=== PATIENT | female | born 1985 | race Asian ===

== ENCOUNTER 2017-12-10 09:37 | Emergency (ER) | payer SELFPAY ==
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
[2017-12-10 12:45] VITALS: BP 107/70
== END 2017-12-10 12:44 | disposition home or self-care (01) ==
LOC: ED 09:37
DX: S29.9XXA Unspecified injury of thorax, initial encounter (principal); S79.911A Unspecified injury of right hip, initial encounter; S50.01XA Contusion of right elbow, initial encounter; V43.62XA Car passenger injured in collision with other type car in traffic accident, initial encounter; Y92.410 Unspecified street and highway as the place of occurrence of the external cause
CPT/HCPCS: 71250; 74176; 99282